=== PATIENT | female | born 1995 | race Caucasian/White ===

== ENCOUNTER 2018-06-12 06:13 | Emergency (ER) | payer SELFPAY ==
[2018-06-12 09:46] LABS: Pregnancy Test - Urine (BHCG) POSITIVE (Negative); Pregu Control Background? CLEAR/WHITE (CLR/WHITE); Pregu Control Bar Appear? YES (CONTROL BAR); Specific Gravity 1.013 (1.002-1.036)
[2018-06-12] MEDS ORDERED: Doxylamine 25 MG TAB PO SCH (10:15)
[2018-06-12 10:16] LABS: Bilirubin Negative (Negative); Blood, Urine Negative (Negative); Clarity CLOUDY (Clear); Glucose, Urine (Dipstick) Negative (Negative); Leukocyte Negative (Negative); Nitrite Negative (Negative); Protein, Urine (Dipstick) 30 mg/dL (Neg-Trace); Specific Gravity, Urine 1.014 (1.002-1.036)
[2018-06-12 10:19] LABS: Bacteria/HPF 1+ HPF (None Seen); Hyaline Casts/LPF 7-10 HYALINE CAST LPF (0-3 Hyaline); Pathc Cast-AUWi Flag 2.47 (0-2.49)
[2018-06-12 10:34] LABS: RBC/HPF 0-3 HPF (0-3)
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
== END 2018-06-12 11:17 | disposition home or self-care (01) ==
LOC: ERS 06:13
DX: O9A.311 Physical abuse complicating pregnancy, first trimester (principal); S00.511A Abrasion of lip, initial encounter; O23.41 Unspecified infection of urinary tract in pregnancy, first trimester; Y04.0XXA Assault by unarmed brawl or fight, initial encounter; Z3A.01 Less than 8 weeks gestation of pregnancy
CPT/HCPCS: 76856; 81003; 81015; 81025; 87086; 93976